=== PATIENT | male | born 1990 | race Caucasian/White ===

== ENCOUNTER 2022-04-18 00:39 | Emergency (ER) | payer SELFPAY ==
[~2022-04-18] VITALS: Ht 182.9 cm; Wt 90.7 kg
[2022-04-18 01:03] VITALS: BP 118/71
[2022-04-18] MEDS ORDERED: SODIUM BICARBONATE 5 ML VIAL ONE (01:50)
[2022-04-18] MEDS ORDERED: LIDOCAINE 1%-EPI 1:100,000 20 ML VIAL ONE (01:50)
[2022-04-18] MEDS ORDERED: CEPHALEXIN MONOHYDRATE 500 MG CAPSULE PO ONE ×2 (01:50→02:00)
[2022-04-18] MEDS ORDERED: TDAP [DIPH/PERTUSSIS/TET] 0.5 ML VIAL IM ONE ×2 (01:51→02:00)
[2022-04-18] MEDS ORDERED: LIDOCAINE 1%-EPI 1:100,000 20 ML VIAL TP ONE (02:00)
[2022-04-18] MEDS ORDERED: SODIUM BICARBONATE 5 ML VIAL MC ONE (02:00)
[2022-04-18] MEDS ORDERED: CEPH500T PO (03:05)
== END 2022-04-18 03:45 | disposition home or self-care (01) ==
LOC: ER 00:53
DX: S01.111A Laceration without foreign body of right eyelid and periocular area, initial encounter (principal); F10.129 Alcohol abuse with intoxication, unspecified; R51.9 Headache, unspecified; Z79.899 Other long term (current) drug therapy; W18.30XA Fall on same level, unspecified, initial encounter; Y93.89 Activity, other specified; Y92.89 Other specified places as the place of occurrence of the external cause; Y99.8 Other external cause status; Y90.8 Blood alcohol level of 240 mg/100 ml or more
CPT/HCPCS: 12013; 99284; 72125; 70450; 36415; 80320; J3490 ×2; 90715; G0480